=== PATIENT | female | born 1965 | race Caucasian/White ===

== ENCOUNTER 2024-07-21 12:20 | Emergency (ER) | payer OTHER ==
--- NOTE | 2024-07-21 13:02 | ER ---
Nurse's Notes [facility] Name: Jonathan Garcia Age: 59 yrs Sex: Female : 1965 Arrival Date: 07/21/2024 Time: 12:20 Bed 18 Private MD: Diagnosis: Foreign body in left ear Presentation: 07/21 12:31 Chief complaint: Patient states: Irritation to left ear X 4-5 days. Pt reports feeling ld1 something trying to "crawl out.". Coronavirus screen: At this time, the client does not indicate any symptoms associated with coronavirus-19. Ebola Screen: No symptoms or risks identified at this time. Initial Sepsis Screen: Does the patient meet any 2 criteria? No. Patient's initial sepsis screen is negative. Does the patient have a suspected source of infection? No. Patient's initial sepsis screen is negative. Risk Assessment: Do you want to hurt yourself or someone else? Patient reports no desire to harm self or others. Onset of symptoms was July 21, 2024. 12:31 Method Of Arrival: Ambulatory ld1 12:31 Acuity: TOMMIE 4 ld1 Historical: - Allergies: 12:30 Sulfa (Sulfonamide Antibiotics); ld1 12:30 TETRACYCLINES; ld1 12:30 Erythromycin; ld1 - PMHx: 12:30 GERD; Hypertensive disorder; Hypercholesterolemia; ld1 - PSHx: 12:30 Total abdominal hysterectomy; Spinal fusion; ld1 - Immunization history:: Adult Immunizations up to date. - Infectious Disease History:: Denies. - Social history:: Smoking status: Patient denies any tobacco usage or history of. - Family history:: not pertinent. - Hospitalizations: : No recent hospitalization is reported. Screenin:35 [facility] ED Fall Risk Assessment (Adult) History of falling in the last 3 months, me1 including since admission No falls in past 3 months (0 pts) Confusion or Disorientation No (0 pts) Intoxicated or Sedated No (0 pts) Impaired Gait No (0 pts) Mobility Assist Device Used No (0 pt) Altered Elimination No (0 pt) Score/Fall Risk Level 0 - 2 = Low Risk Maintained a safe environment, Provided non-skid footwear, Hourly rounding (assess needs \\T\\ fall precautionary measures) done. Abuse screen: Denies threats or abuse. Nutritional screening: No deficits noted. Tuberculosis screening: No symptoms or risk factors identified. Assessment: 12:35 General: Appears uncomfortable, well groomed, well developed, well nourished, Behavior me1 is calm, cooperative, appropriate for age, Reports Irritation to left ear X 4-5 days. Pt reports feeling something trying to "crawl out.". Pain: Complains of pain in left ear Pain does not radiate. Pain currently is 6 out of 10 on a pain scale. Quality of pain is described as aching, Pain began gradually, Is continuous. Neuro: Level of Consciousness is awake, alert, obeys commands, Oriented to person, place, time, situation, Appropriate for age. Cardiovascular: Patient's skin is warm and dry. Respiratory: Airway is patent Respiratory effort is even, unlabored, Respiratory pattern is regular, symmetrical. GI: No signs and/or symptoms were reported involving the gastrointestinal system. : No signs and/or symptoms were reported regarding the genitourinary system. EENT: Reports pain in left ear. Derm: Skin is intact, is healthy with good turgor, Skin is pink, warm \\T\\ dry. Musculoskeletal: No signs and/or symptoms reported regarding the musculoskeletal system. Vital Signs: 12:31 BP 120 / 66; Pulse 85; Resp 18; Temp 98.1(TE); Pulse Ox 96% on R/A; Weight 81.65 kg; ld1 Height 5 ft. 4 in. ; Pain 0/10; 13:23 BP 124 / 67; Pulse 78; Resp 17; Temp 98.1; Pulse Ox 98% ; me1 12:31 Body Mass Index 30.90 (81.65 kg, 162.56 cm) ld1 12:31 Pain Scale: Adult ld1 ED Course: 12:23 Patient arrived in ED. al6 12:25 Franklin Marx MD is Attending Physician. rn 12:31 Arm band placed on right wrist. ld1 12:32 Triage completed. ld1 12:35 Patient has correct armband on for positive identification. Bed in low position. Call me1 light in reach. Side rails up X 1. Provided Education on: POC. Verbalized understanding.. Client placed on continuous cardiac and pulse oximetry monitoring. NIBP monitoring applied. Pulse ox on. NIBP on. 12:35 No provider procedures requiring assistance completed. Patient did not have IV access me1 during this emergency room visit. 12:42 Lenora Prince, RN is Primary Nurse. me1 13:00 Jazmyn Villegas MD is Referral Physician. rn Administered Medications: No medications were administered Medication: 12:35 VIS not applicable for this client. me1 Outcome: 13:01 Discharge ordered by . rn 13:24 Patient left the ED. me1 Signatures: Franklin Marx MD MD rn Sims, Lauren, RN RN ld1 Lenora Prince, JOSEPH RN me1 Rhoda Cavazos Corrections: (The following items were deleted from the chart) 13:19 12:31 Chief complaint: Patient states: Irritation to left ear X 4-5 days. Pt reports me1 feeling something trying to "crawl out." ld1
--- NOTE | 2024-07-21 13:02 | EDPHYS ---
Physician Documentation [facility] Name: Jonathan Garcia Age: 59 yrs Sex: Female : 1965 Arrival Date: 07/21/2024 Time: 12:20 Bed 18 Private MD: ED Physician Franklin Marx HPI: 07/21 12:55 This 59 yrs old Female presents to ER via Ambulatory with complaints of Foreign Body In rn Ear. 12:55 The patient presents with a foreign body sensation. The complaints affect the left ear. rn 12:55 Onset: The symptoms/episode began/occurred 5 day(s) ago. Modifying factors: The rn symptoms are alleviated by nothing, the symptoms are aggravated by nothing. Severity of symptoms: At their worst the symptoms were mild. The patient has not experienced similar symptoms in the past. Patient reports foreign body sensation in left ear. Feels something crawling and irritating. States happened for 5 days ago. Has irrigated here and put oil in ear. Feels better but still feels something in the ear. No drainage. No fever.. Historical: - Allergies: 12:30 Sulfa (Sulfonamide Antibiotics); ld1 12:30 TETRACYCLINES; ld1 12:30 Erythromycin; ld1 - PMHx: 12:30 GERD; Hypertensive disorder; Hypercholesterolemia; ld1 - PSHx: 12:30 Total abdominal hysterectomy; Spinal fusion; ld1 - Immunization history:: Adult Immunizations up to date. - Infectious Disease History:: Denies. - Social history:: Smoking status: Patient denies any tobacco usage or history of. - Family history:: not pertinent. - Hospitalizations: : No recent hospitalization is reported. ROS: 12:55 Constitutional: Negative for fever, chills, and weight loss, ENT: No foreign body rn identified in left ear. Earwax identified along tympanic membrane. No evidence of perforation or drainage. There is some irritation at about 6:00 distal canal. No insect or foreign body identified Exam: 12:55 Constitutional: This is a well developed, well nourished patient who is awake, alert, rn and in no acute distress. ENT: No foreign body identified in left ear. Earwax identified along tympanic membrane. No evidence of perforation or drainage. There is some irritation at about 6:00 distal canal. No insect or foreign body identified Vital Signs: 12:31 BP 120 / 66; Pulse 85; Resp 18; Temp 98.1(TE); Pulse Ox 96% on R/A; Weight 81.65 kg; ld1 Height 5 ft. 4 in. ; Pain 0/10; 13:23 BP 124 / 67; Pulse 78; Resp 17; Temp 98.1; Pulse Ox 98% ; me1 12:31 Body Mass Index 30.90 (81.65 kg, 162.56 cm) ld1 12:31 Pain Scale: Adult ld1 MDM: 12:25 Medical Screening Exam initiated rn 12:55 Differential diagnosis: foreign body, acute otalgia, cerumen impaction, Canal rn irritation. Data reviewed: vital signs, nurses notes, and as a result, I will discharge patient. Counseling: I had a detailed discussion with the patient and/or guardian regarding the historical points, exam findings, and any diagnostic results supporting the discharge/admit diagnosis, the need for outpatient follow up, to return to the emergency department if symptoms worsen or persist or if there are any questions or concerns that arise at home. Response to treatment: the patient's symptoms have mildly improved after treatment. ED course: Patient improved after irrigation here in ER. No foreign body identified. Will discharge home with drops, likely irritation and wax.. Administered Medications: No medications were administered Disposition Summary: 07/21/24 13:01 Discharge Ordered Notes: Location: Home rn Problem: new rn Symptoms: have improved rn Condition: Stable rn Diagnosis - Foreign body in left ear rn Followup: rn - With: Jazmyn Villegas MD - When: As needed - Reason: Recheck today's complaints, Re-evaluation by your physician Discharge Instructions: - Discharge Summary Sheet rn - Ear Foreign Body rn Forms: - Medication Reconciliation Form rn - Antibiotic external grinder tool - Prescription Opioid Use rn - Patient Portal Instructions rn - Leadership Thank You Letter rn Prescriptions: - Cortisporin-TC 3.3-3-10-0.5 mg/mL Otic drops, suspension - instill 4 drops OTIC route every 6 hours for 7 days; 1 unit; Refills: 0, rn Product Selection Permitted Signatures: Franklin Marx MD MD rn Sims, Lauren, RN RN ld1 Corrections: (The following items were deleted from the chart) 12:59 12:55 Constitutional: Negative for fever, chills, and weight loss, ENT: No foreign body rn identified in left ear. Earwax identified along tympanic membrane. No evidence of perforation or drainage. There is some irritation at about 6:00 distal canal. No insect or foreign body identified rn 12:59 12:55 Constitutional: This is a well developed, well nourished patient who is awake, rn alert, and in no acute distress. rn
[2024-07-21 13:28] VITALS: TEMP 98.1
[2024-07-21 13:29] VITALS: BP 124/67; O2SAT 98
== END 2024-07-21 13:24 | disposition home or self-care (01) ==
LOC: ER 12:20
DX: T16.2XXA Foreign body in left ear, initial encounter (principal)
CPT/HCPCS: 99283